=== PATIENT | female | born 1935 | race Native Hawaiian/Other Pacific Islander ===

== ENCOUNTER 2016-09-26 12:51 | Outpatient (CLI) | payer OTHER | END 2016-09-26 19:28 | disposition home or self-care (01) | LOC: RAD 12:51 | DX: M17.0 Bilateral primary osteoarthritis of knee (principal) ==

== ENCOUNTER 2017-12-18 14:38 | Outpatient (CLI) | payer OTHER | END 2017-12-18 23:07 | disposition home or self-care (01) | LOC: RAD 14:38 | DX: M25.561 Pain in right knee (principal); M25.562 Pain in left knee ==

== ENCOUNTER 2018-12-31 13:14 | Outpatient (CLI) | payer OTHER | END 2019-01-01 05:53 | disposition home or self-care (01) | LOC: RAD 13:14 | DX: M25.512 Pain in left shoulder (principal); M25.561 Pain in right knee ==

== ENCOUNTER 2019-07-26 13:11 | Outpatient (CLI) | payer OTHER | END 2019-07-26 19:44 | disposition home or self-care (01) | LOC: LAB 13:11 | DX: R19.7 Diarrhea, unspecified (principal); R10.13 Epigastric pain | CPT/HCPCS: 36415; 82784; 83516 ==

== ENCOUNTER → 2019-11-22 | Outpatient (CLI) | payer OTHER ==
[2019-11-22 12:20] LABS: POTASSIUM 4.5 mmol/L (3.6-5.2)
== END ==
LOC: LABW 11:03
PROVIDERS: Internal Medicine
DX: E87.5 Hyperkalemia (principal)
CPT/HCPCS: 36415; 80048

== ENCOUNTER 2020-01-06 13:36 | Outpatient (CLI) | payer OTHER | END 2020-01-06 22:29 | disposition home or self-care (01) | LOC: RAD 13:36 | DX: M25.562 Pain in left knee (principal) ==

== ENCOUNTER 2020-06-24 16:18 | Outpatient (CLI) | payer OTHER | END 2020-06-24 23:59 | disposition home or self-care (01) | LOC: INF 16:18 | PROVIDERS: ATTEND Internal Medicine | DX: Z23 Encounter for immunization (principal) | CPT/HCPCS: 96372 ==

== ENCOUNTER 2020-07-22 14:07 | Outpatient (CLI) | payer OTHER | END 2020-07-22 22:02 | disposition home or self-care (01) | LOC: INF 14:07 | PROVIDERS: ATTEND Internal Medicine | DX: Z23 Encounter for immunization (principal) | CPT/HCPCS: 96372 ==

== ENCOUNTER 2020-07-31 15:29 | Outpatient (CLI) | payer OTHER | END 2020-07-31 20:58 | disposition home or self-care (01) | LOC: RAD 15:29 | PROVIDERS: ATTEND Physician Assistant | DX: M25.561 Pain in right knee (principal) ==

== ENCOUNTER 2020-10-13 16:02 | Outpatient (CLI) | payer OTHER | END 2020-10-13 22:05 | disposition home or self-care (01) | LOC: LABW 16:02 | PROVIDERS: ATTEND Internal Medicine Gastroenterology | DX: K90.0 Celiac disease (principal) | CPT/HCPCS: 36415; 82784; 83516 ==

== ENCOUNTER 2020-12-21 14:25 | Outpatient (CLI) | payer OTHER | END 2020-12-21 19:50 | disposition home or self-care (01) | LOC: RAD 14:25 | PROVIDERS: ATTEND Physician Assistant | DX: M25.562 Pain in left knee (principal) ==